=== PATIENT | female | born 1960 | race Caucasian/White ===

== ENCOUNTER 2021-11-20 12:58 | Inpatient (IN) | payer OTHER ==
[~2021-11-20] VITALS: Ht 157.5 cm; Wt 89.6 kg
[2021-11-20 17:36] LABS: BASOPHIL 0.5 % (0-2); EOSINOPHIL 0.8 % (0-5); HCT 40.7 % (37.0-47.0); HGB 12.9 g/dl (12.5-16.0); MCH 26.3 pg (25.0-31.0); MCHC 31.7 g/dL (32.0-36.0); MCV 83.1 fL (78.0-100.0); MPV 8.8 fL (6.0-9.5); NEUTROPHIL 72.7 % (41-80); NRBC 0; PLT 449 K/uL (150-400); RDW 14.2 % (11.5-14.0); WBC 18.7 K/uL (4.0-10.5)
[2021-11-20 17:39] LABS: MONOCYTE 8.6 % (0-12)
[2021-11-20 18:09] LABS: ALBUMIN 2.3 g/dL (3.4-5.0); BILIRUBIN - TOTAL 0.3 mg/dL (0.2-1.0); CREATININE 1.36 mg/dL (0.51-0.95); GLOBULIN (CALCULATION) 5.8 g/dL; POTASSIUM 4.4 mmol/L (3.5-5.1); TOTAL PROTEIN 8.1 g/dL (6.4-8.2)
[2021-11-20 18:13] LABS: LACTIC ACID 3.5 mmol/L (0.4-1.9)
[2021-11-20] MEDS ORDERED: METFORMIN HCL500 MG PO (20:47)
[2021-11-20] MEDS ORDERED: PRINIVIL20 MG PO (20:48)
[2021-11-20] MEDS ORDERED: JARDIANCE25 MG PO (20:49)
[2021-11-21 06:13] LABS: BASOPHIL 0.5 % (0-2); EOSINOPHIL 1.8 % (0-5); HCT 36.1 % (37.0-47.0); HGB 11.4 g/dl (12.5-16.0); LYMPHOCYTE 17.2 % (15-48); MCH 26.2 pg (25.0-31.0); MCHC 31.6 g/dL (32.0-36.0); MONOCYTE 8.1 % (0-12); MPV 8.7 fL (6.0-9.5); NEUTROPHIL 70.9 % (41-80); NRBC 0; PLT 408 K/uL (150-400); RBC 4.35 M/uL (4.20-5.40); RDW 14.3 % (11.5-14.0); WBC 15.3 K/uL (4.0-10.5)
[2021-11-21 06:25] LABS: INR 1.08 (0.9-1.2); PROTHROMBIN TIME 13.7 SECONDS (11.9-13.9)
[2021-11-21 06:40] LABS: BUN 22 mg/dL (7-18); BUN/CREAT RATIO (CALC) 16.2 RATIO; CHLORIDE 103 mmol/L (98-107); CO2 (BICARBONATE) 24 mmol/L (21-32); CREATININE 1.36 mg/dL (0.51-0.95); GLUCOSE 220 mg/dL (74-106); POTASSIUM 4.9 mmol/L (3.5-5.1)
[2021-11-21 06:41] LABS: C-REACTIVE PROTEIN > 18.00 mg/dL (<=0.90)
[2021-11-23 10:39] LABS: BASOPHIL 0.5 % (0-2); EOSINOPHIL 2.2 % (0-5); HCT 34.8 % (37.0-47.0); LYMPHOCYTE 15.5 % (15-48); MCHC 31.6 g/dL (32.0-36.0); MCV 82.3 fL (78.0-100.0); MONOCYTE 7.2 % (0-12); MPV 8.4 fL (6.0-9.5); NEUTROPHIL 72.5 % (41-80); NRBC 0; PLT 401 K/uL (150-400); RBC 4.23 M/uL (4.20-5.40); RDW 14.2 % (11.5-14.0); WBC 17.2 K/uL (4.0-10.5)
[2021-11-23 10:57] LABS: BUN 31 mg/dL (7-18); BUN/CREAT RATIO (CALC) 21.8 RATIO; C-REACTIVE PROTEIN >18.00 mg/dL (<=0.90); CHLORIDE 102 mmol/L (98-107); CO2 (BICARBONATE) 23 mmol/L (21-32); CREATININE 1.42 mg/dL (0.51-0.95); GLUCOSE 121 mg/dL (74-106); POTASSIUM 4.8 mmol/L (3.5-5.1)
--- NOTE | 2021-11-23 15:16 | NUR ---
Ms. Granados lives alone. She was independent in the home and community prior to admission. 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 - Referrals have been made to A . [facility] will provide a rw. [employer] does not have an off loading boot. Searching through other company's - A message has been left for [facility] re: wound vac.
--- NOTE | 2021-11-24 10:58 | NUR ---
11/24/21 [facility] is able to provide the forefront boot. Patient's sister agreed to car pick up driver the boot. - Ioana reports plans to deliver wound vac at 1:00.
[2021-11-25 07:00] LABS: BASOPHIL 0.4 % (0-2); HCT 35.1 % (37.0-47.0); HGB 10.9 g/dl (12.5-16.0); LYMPHOCYTE 23.9 % (15-48); MCHC 31.1 g/dL (32.0-36.0); MCV 83.8 fL (78.0-100.0); MONOCYTE 9.5 % (0-12); MPV 8.7 fL (6.0-9.5); NRBC 0; PLT 444 K/uL (150-400); RBC 4.19 M/uL (4.20-5.40); RDW 13.9 % (11.5-14.0); WBC 12.8 K/uL (4.0-10.5)
[2021-11-25 07:01] LABS: BUN/CREAT RATIO (CALC) 19.7 RATIO; CREATININE 1.32 mg/dL (0.51-0.95); POTASSIUM 5.3 mmol/L (3.5-5.1)
[2021-11-25] MEDS ORDERED: VIBRAMYCIN100 MG PO (12:21)
[2021-11-25] MEDS ORDERED: LIDOCAINE PAIN1 EACH TOP (12:21)
[2021-11-25] MEDS ORDERED: CEFDINIR300 MG PO (12:21)
[2021-11-25] MEDS ORDERED: SACCHAROMYCES250 MG PO (12:21)
== END 2021-11-25 14:30 | disposition home health service (06) | DRG 623 ==
LOC: FER 12:58 → FMS 18:38
PROVIDERS: Internal Medicine; Nurse Practitioner Acute Care; Nurse Practitioner Family; ADMIT Internal Medicine
PROC: B24BZZZ Ultrasonography of Heart with Aorta (ICD-10-PCS; 2021-11-20)
PROC: 3E0234Z Introduction of Serum, Toxoid and Vaccine into Muscle, Percutaneous Approach (ICD-10-PCS; principal; 2021-11-21)
PROC: 0QBP0ZZ Excision of Left Metatarsal, Open Approach (ICD-10-PCS; 2021-11-21)
PROC: 0KBW0ZZ Excision of Left Foot Muscle, Open Approach (ICD-10-PCS; 2021-11-23)
DX: E11.621 Type 2 diabetes mellitus with foot ulcer (principal); E87.2 Acidosis; L03.116 Cellulitis of left lower limb; L97.525 Non-pressure chronic ulcer of other part of left foot with muscle involvement without evidence of necrosis; E11.628 Type 2 diabetes mellitus with other skin complications; Z20.822 Contact with and (suspected) exposure to COVID-19; Z23 Encounter for immunization; S91.312A Laceration without foreign body, left foot, initial encounter; E11.22 Type 2 diabetes mellitus with diabetic chronic kidney disease; I13.10 Hypertensive heart and chronic kidney disease without heart failure, with stage 1 through stage 4 chronic kidney disease, or unspecified chronic kidney disease; N18.9 Chronic kidney disease, unspecified; E11.65 Type 2 diabetes mellitus with hyperglycemia; B95.1 Streptococcus, group B, as the cause of diseases classified elsewhere; B95.8 Unspecified staphylococcus as the cause of diseases classified elsewhere; R01.1 Cardiac murmur, unspecified; D17.9 Benign lipomatous neoplasm, unspecified; E66.9 Obesity, unspecified; I35.0 Nonrheumatic aortic (valve) stenosis; X58.XXXA Exposure to other specified factors, initial encounter; Y93.11 Activity, swimming; Z82.49 Family history of ischemic heart disease and other diseases of the circulatory system
CPT/HCPCS: 36415; 73630; 73700; 80048; 80053; 83036; 83605; 84145; 85025; 85610; 86140; 87040; 87070; 87077; 87186; 87205; 90471; 90715; 93970; 94010; 97162; 97530-GP; J0295; J0692; J0696; J1650; J2250; J2704; J3010; J3370; J7030; J7040; J7120; U0002